=== PATIENT | female | born 1955 | race Two or more races ===

== ENCOUNTER 2020-03-21 22:46 | Emergency (ER) | payer MEDICAID ==
[~2020-03-21] VITALS: Ht 152.4 cm; Wt 65.8 kg
--- NOTE | 2020-03-21 22:58 | NUR ---
PATIENT CAME TO THE ER BED 10 C/O RIGHT KNEE PAIN FOLLOWING A MECHANICAL SLIP AND FALL AT HOME PER [facility]. PATIENT HAS RIGHT KNEE SWELLING. POSITIVE FOR ETOH. PATPAINFUL UPON MOVEMENT. LIMITED RANGE OF MOTION ON RIGHT LEG. PATIENT IS AAOX4. NO SOB .BREATHING EVENLY AND UNLABORED ON ROOM AIR. CONNECTED TO THE MONITOR.
--- NOTE | 2020-03-21 23:22 | NUR ---
XRAY AT BEDSIDE
[2020-03-21] MEDS ORDERED: HYDROCODONE/APAP 5/325MG TABLET ONE (23:35)
[2020-03-21] MEDS: HYDROCODONE/APAP 5/325MG TABLET PO ONE (23:38)
--- NOTE | 2020-03-22 00:45 | NUR ---
TECH AT BEDSIDE FOR IMMOBILIZATION OF RIGHT LEG.
--- NOTE | 2020-03-22 00:57 | NUR ---
PATIENT IS PICKED UP BY NEIGHBOR.
--- NOTE | 2020-03-22 01:47 | NUR ---
Patient discharged to home in stable condition. Written and verbal after care instructions given. Patient verbalizes understanding of instruction.
[2020-03-22 01:48] VITALS: BP 134/74
== END 2020-03-22 01:47 | disposition home or self-care (01) ==
LOC: ER 22:51
DX: S82.191A Other fracture of upper end of right tibia, initial encounter for closed fracture (principal); S82.491A Other fracture of shaft of right fibula, initial encounter for closed fracture; W01.0XXA Fall on same level from slipping, tripping and stumbling without subsequent striking against object, initial encounter; Y93.89 Activity, other specified; Y92.89 Other specified places as the place of occurrence of the external cause; Y99.8 Other external cause status
CPT/HCPCS: 73564-TC